=== PATIENT | male | born 1980 | race Caucasian/White ===

== ENCOUNTER 2021-01-10 15:08 | Outpatient (REF) | payer MEDICAID, SELFPAY ==
[2021-01-10 18:25] LABS: MANUAL DIFF FLAG NO
[2021-01-10 18:30] LABS: Basophils Absolute Auto 0.1 X10*3/uL (0.0-0.2); Basophils Percent Auto 1.1 % (0-2); Eosinophils Absolute Auto 0.9 X10*3/uL (0.0-0.4); Eosinophils Percent Auto 17.2 % (0-4); Hematocrit 41.8 % (42-52); Hemoglobin 14.3 g/dl (14.0-18.0); Imm Gran Abs Auto 0.01 X10*3/uL (0.00-0.03); Imm Gran Pct Auto 0.2 % (0.0-0.4); Lymphocytes Absolute Auto 1.9 X10*3/uL (1.2-4.9); Lymphocytes Percent Auto 34.7 % (20-40); Mean Corpuscular HGB Conc 34.2 g/dl (31.0-36.0); Mean Corpuscular Hemoglobin 31.7 pg (27.0-33.0); Mean Corpuscular Volume 92.7 fL (80-98); Mean Platelet Volume 10.7 fL (9.4-12.4); Monocytes Absolute Auto 0.4 X10*3/uL (0.1-1.2); Monocytes Percent Auto 7.1 % (2-11); Neutrophils Absolute Auto 2.2 X10*3/uL (2.0-8.3); Neutrophils Percent Auto 39.7 % (45-73); Platelet Count 258 X10*3/uL (160-400); Red Blood Count 4.51 X10*6/uL (4.60-5.80); Red Cell Distribution Width 12.3 % (11.0-16.0); White Blood Count 5.5 X10*3/uL (4.8-10.8)
[2021-01-10 18:57] LABS: Alanine Aminotransferase 18 U/L (0-40); Albumin Level 4.4 g/dL (3.5-5.0); Alkaline Phosphatase 56 U/L (39-117); Anion Gap 16 (12-20); Aspartate Amino Transferase 15 U/L (5-37); Bilirubin Total 0.8 mg/dL (0.0-1.0); Blood Urea Nitrogen 17 mg/dL (9-16); Calcium 9.8 mg/dL (8.4-10.2); Carbon Dioxide 24 mmol/L (22-29); Chloride 105 mmol/L (96-108); Cholesterol 191 mg/dL; Estimated Glomerular Filt Rate > 60; Glucose Fasting 89 mg/dL (60-99); HDL Cholesterol 35 mg/dL; LDL Cholesterol Calculated 80 mg/dl; Potassium 4.5 mmol/L (3.3-5.1); Sodium 140 mmol/L (135-145); Total Protein 6.9 g/dL (6.5-8.0); Triglycerides 381 mg/dL
== END 2021-01-10 15:09 | disposition home or self-care (01) ==
LOC: HO.MANLDS 15:08
PROVIDERS: PCP Internal Medicine; Visit Provider Physician Assistant
DX: I10 Essential (primary) hypertension (principal); E78.1 Pure hyperglyceridemia
CPT/HCPCS: 36415; 80053; 80061; 85025

== ENCOUNTER 2024-06-28 14:03 | Outpatient (REF) | payer MEDICAID, SELFPAY ==
[2024-06-28 15:06] LABS: MANUAL DIFF FLAG NO
[2024-06-28 15:12] LABS: Basophils Absolute Auto 0.1 X10*3/uL (0.0-0.2); Basophils Percent Auto 1.1 % (0-2); Eosinophils Absolute Auto 0.6 X10*3/uL (0.0-0.4); Eosinophils Percent Auto 13.2 % (0-4); Hematocrit 40.4 % (42.0-52.0); Hemoglobin 14.7 g/dl (14.0-18.0); Imm Gran Abs Auto 0.01 X10*3/uL (0.00-0.03); Imm Gran Pct Auto 0.2 % (0.0-0.4); Lymphocytes Absolute Auto 1.4 X10*3/uL (1.2-4.9); Lymphocytes Percent Auto 31.5 % (20-40); Mean Corpuscular HGB Conc 36.4 g/dl (31.0-36.0); Mean Corpuscular Hemoglobin 32.8 pg (27.0-33.0); Mean Corpuscular Volume 90.2 fL (80.0-98.0); Mean Platelet Volume 9.9 fL (9.4-12.4); Monocytes Absolute Auto 0.3 X10*3/uL (0.1-1.2); Monocytes Percent Auto 5.9 % (2-11); Neutrophils Absolute Auto 2.2 x10*3/uL (2.0-8.3); Neutrophils Percent Auto 48.1 % (45-73); Platelet Count 272 X10*3/uL (160-400); Red Blood Count 4.48 X10*6/uL (4.60-5.80); Red Cell Distribution Width 11.7 % (11.0-16.0); White Blood Count 4.5 X10*3/uL (4.8-10.8)
[2024-06-28 15:21] LABS: Alanine Aminotransferase 25 U/L (0-40); Albumin Level 4.4 g/dL (3.5-5.0); Alkaline Phosphatase 54 U/L (39-117); Anion Gap 12 (12-20); Aspartate Amino Transferase 38 U/L (5-37); Bilirubin Total 0.5 mg/dL (0.0-1.0); Blood Urea Nitrogen 16 mg/dL (9-16); Calcium 10.1 mg/dL (8.4-10.2); Carbon Dioxide 28 mmol/L (22-29); Chloride 106 mmol/L (96-108); Cholesterol 231 mg/dL (<200); Estimated Glomerular Filt Rate > 60; Glucose Random 87 mg/dL (60-115); HDL Cholesterol 39 mg/dL (>40); LDL Cholesterol Calculated 131 mg/dL (<100); Potassium 3.6 mmol/L (3.3-5.1); Sodium 142 mmol/L (135-145); Total Protein 7.1 g/dL (6.5-8.0); Triglycerides 305 mg/dL (<150)
[2024-06-28 15:45] LABS: Prostate Specific Antigen 0.38 ng/mL (<0.05-4.0)
== END 2024-06-28 14:04 | disposition home or self-care (01) ==
LOC: HO.HMGCLDS 14:03
PROVIDERS: PCP Internal Medicine; Visit Provider Physician Assistant
DX: E78.1 Pure hyperglyceridemia (principal); Z12.5 Encounter for screening for malignant neoplasm of prostate
CPT/HCPCS: 36415; 80053; 80061; 84153; 85025

== ENCOUNTER 2025-06-26 14:52 | Outpatient (REF) | payer OTHER, SELFPAY ==
--- OUTSIDE RECORDS SUMMARY | 2025-06-26 16:35 | XMS_ITS | Encounter Summary ---
Author Organization [facility] Address [address] [facility] [address] [place] [address] Phone Care Team Providers Care Jackerman Name Role Phone David Urbina DO Primary Care Provider [phone] David Urbina DO Unavailable Encounter Details Date Type Department Care Team (Late st Contact Info) Description 04/19/2022 Procedure Pass [address] [place] [address] Social History Tobacco Use Types Packs/Day Years Used Date Smoking Tobacco: Former Smokeless Tobacco: Never Comments:Quit 20 years ago. Alcohol Use Standard Drinks/Week Comments Yes 2 (1 standard drink = 0.6 oz pur e alcohol) Sex and Gender Information Value Date Recorded Sex Assigned at Not on file Legal Sex Male 9:24 PM EDT Gender Identity Not on file Sexual Orientation Not on file documented as of this encounter Last Filed Vital Signs Vital Sign Reading Time Taken Comments Blood Pressure - - Pulse - - Temperature - - Respiratory Rate - - Oxygen Saturation - - Inhaled Oxygen Concentration - - Weight 74.8 kg (165 lb) 04/20/2022 2:39 PM EDT Height 175.3 cm (5' 9 ) 04/20/2022 2:39 PM EDT Body Mass Index 24.37 04/20/2022 2:39 PM EDT documented in this encounter Plan of Treatment Not on file documented as of this encounter Visit Diagnoses Not on filedocumented in this encounter Additional Health Concerns Infection Onset Date Last Indicated Resolved Time MRSA 04/26/2022 04/26/2022 04/25/2024 1:21 AM EDT documented as of this encounter Care Teams Jackerman Relationship Specialty Start Date End Date David Urbina CelineDO [email or web address] PCP - General Internal Medicine 03/28/21 CarlitosDavidDO [address] [place] [address] [email or web address] Insurance Assigned Provider 05/14/21 01/20/23 documented as of this encounter Additional Source Comments The information contained in this document represents components of the legal health record. It is not the complete legal health record.[facility]
--- OUTSIDE RECORDS SUMMARY | 2025-06-26 16:36 | XMS_ITS | Continuity of Care Document ---
Author Organization [facility], [facility] Address [address] [facility] [place] [address] [place] [address] Assessment No assessment recorded. Plan of Treatment Reminders Order Date Submit Date Provider Last Modified By Organization Details Last Modified Time Details Appointments FOLLOW UP 15 2024 02:30P BEVERLY MATHEW Not available Not available Not available Lab CMP, serum or plasma 2024 025 [facility], [address] [place] [address], [id number], 06/26/2025 14:58:06 CBC w/ auto diff 2024 025 [facility], [address] [place] [address], [id number], 06/26/2025 14:58:06 hemoglobi n A1c, QN, blood 2024 025 [facility], [address] [place] [address], [id number], 06/26/2025 14:58:06 PSA, serum or plasma 2024 025 [facility], [address] [place] [address], [id number], 06/26/2025 14:58:29 Referral None recorded. Procedures None recorded. Surgeries None recorded. Imaging None recorded. Medication Orders gemfibroz il 600 mg tablet 2024 025 [facility] #[id number], [address] [place], [address], 06/26/2025 14:42:58 Patient TargetsNo targets recorded. Patient InstructionsNo instructions recorded. Reason for Referral None Reported. Problems Name Problem SNOMED Code Status Onset Date Resolution Date Notes Provider Name and Address Organization Details Recorded Time Essential hypertensi on 23002976 Active 2017 Not Available [facility] 0 11:47:08 Hypertrigl yceridemia 558919420 Active 2017 Not Available [facility] 0 11:47:08 Anxiety 84913807 Active 2017 Not Available [facility] 0 11:47:08 Acute sinusitis 54900579 Active 2023 BEVERLY PEREZ [address] [facility], [place], [address], [facility] 4 16:04:47 Problem Notes None recorded. Medical Equipment None Reported. Allergies No known drug allergies Medications Name Sig Start Date Stop Date Status Note LastModified by Organization Details LastModified Time azithromyci n 250 mg tablet TAKE 2 TABLETS (500 MG) BY ORAL ROUTE ONCE DAILY FOR 1 DAY THEN 1 TABLET (250 MG) BY ORAL ROUTE ONCE DAILY FOR 4 DAYS 06/26 completed Not Available Not Available Not Available lisinopril 20 mg tablet TAKE 1 TABLET BY MOUTH EVERY DAY active Not Available Not Available No t Available lorazepam 0.5 mg tablet TAKE 1 TABLET BY MOUTH TWICE DAILY NEEDED 06/26 completed Not Available Not Available Not Available aspirin 325 mg tablet,carmelo yed release 05/21 completed Not Available Not Available Not Available ciprofloxac in 0.3 % eye drops INSTILL 1 DROP FOUR TIMES DAILY IN LEFT EYE 04/04 completed Not Available Not Available Not Available gemfibrozil 600 mg tablet 1 tablet po bid 2024 active Not Available Not Available Not Avai lable lisinopril 10 mg tablet TAKE 1 TABLET BY MOUTH EVERY DAY 04/04 completed Not Available Not Available Not Available propranolol ER 80 mg capsule,24 hr,extended release TAKE 1 CAPSULE BY MOUTH EVERY DAY 05/21 completed Not Available Not Available Not Available fluoxetine 10 mg capsule 1 tab po daily, after 1 week 2 tabs daily 07/22 completed Not Available Not Available Not Available docusate sodium 100 mg capsule TAKE 1 CAPSULE BY MOUTH TWICE DAILY 05/21 completed Not Available Not Available Not Available propranolol ER 120 mg capsule,24 hr,extended release TAKE 1 CAPSULE BY MOUTH EVERY DAY 04/04 completed Not Available Not Available Not Available methylpredn isolone 4 mg tablets in a dose pack FOLLOW PACKAGE DIRECTION S 06/26 completed Not Available Not Available Not Available fluoxetine 20 mg capsule take 1 capsule by mouth once daily 10/13 completed Not Available Not Available Not Available oxycodone 5 mg tablet TAKE 1 TO 2 TABLETS BY MOUTH EVERY 4 HOURS NEEDED FOR MODERATE PAIN 05/21 completed Not Available Not Available Not Available duloxetine 30 mg capsule,del ayed release TK 1 C PO BID 11/15 completed Not Available Not Available Not Available Boostrix Tdap 2.5 Lf unit-8 mcg-5 Lf/0.5 mL intramuscul ar suspension ADM 0.5ML IM UTD 11/15 completed Not Available Not Available Not Available Afluria Qd 2019- (36 mos up)(PF)60 mcg (15 mcg x4)/0.5 mL IM syringe ADM 0.5ML IM UTD 11/15 completed Not Available Not Available Not Available Vitals Date Recorded Body height Body mass index (BMI) Body weight Heart rate Oxygen saturation Oxygen saturation in Arterial blood by Pulse oximetry Systolic And Diastolic Provider Name and Address Organization Details Last Updated DateTime 5 177.8 cm 24.2 kg/m2 76115.1 1 g 80 /min 98 % 98 % 140/80 mm[Hg] Jessica Sharpe [facility] 14:40:51 Social History Question Answer Notes LastModified by Organizat ion Details LastModified Time Tobacco Smoking Status Former Smoker 20 years ago [facility] 05/21/2023 14:16:35 What Was The Date Of Your Most Recent Tobacco Screening? 06/30/2024 [email or web address] Information not available 06/30/2024 Sex: Unknown Functional Status None recorded. Mental Status None recorded. Family History Relationship Description Onset Age of this Age Resolved Age Notes LastModified by Organization Details LastModified Time Mother Hypertensive disorder lucius Not available 2017 15:42:38 Mother Hypothyroidi sm [email or web address] Not available 2023 14:47:38 Maternal Grandfather Type 2 diabetes mellitus [email or web address] Not available 2017 15:42:54 Maternal Grandmother Harmful pattern of use of alcohol lucius Not available 2017 15:55:27 Medical History Condition Response Coronary Artery Disease N Gout N Other Kidney Stones N Blood Diseases N Hyperthyroidism N Breast Cancer N Blood Transfusion N COPD N Hypothyroidism N Lung Disease N Depression N Defects or Inherited Disease N Difficulty Swallowing N Anxiety Disorder Y Meniere's disease Y Vision or Eye Problems Y Arthritis N Mental Disorder N Stroke N Varicosities N Bladder or Kidney Problems N Liver Disease N Headaches N Kidney Disease N Allergies/Hayfever N Heart Problems N Thyroid Problems N GI Problems N Eating Disorder N Skin Problems Y Anemia N Constipation N Mental Illness Diabetes N Seizures/Epilepsy N Congestive Heart Failure (CHF) N Abuse/Domestic Violence N Diverticulitis N Asthma N Reflux/GERD Y Hepatitis N Heart Disease N Pulmonary Embolism N Chronic Ear Infections N Hypertension Y Chicken Pox Y Autism Spectrum Disorder (ASD) N Thrombophilias N Immunizations Vaccine Type Date Status Note Provider Nam e and Address Organization Details Recorded Time Influenza, split virus, quadrivalent, preservative 9 completed [facility] 12/27/2018 15:04:36 Influenza, split virus, quadrivalent, PF 9 arleen kapoor [facility] 12/27/2018 15:04:36 Influenza, split virus, quadrivalent, preservative 9 completed Kristy kapoor [facility] 07/11/2019 08:32:24 Tdap 0 arleen kapoor [facility] 05/18/2020 11:51:40 Influenza, split virus, quadrivalent, preservative 0 arleen kapoor [facility] 05/18/2020 11:51:48 COVID-19, mRNA, LNP-S, PF, 30 mcg/0.3 mL dose 1 completed Dori kapoor [facility] 02/14/2021 15:26:53 COVID-19, mRNA, LNP-S, PF, 30 mcg/0.3 mL dose 1 completed Dori kapoor [facility] 02/14/2021 15:27:01 Past Encounters Encounter ID Performer Location Encounter Start Date Encounter Closed Date Diagnosis/Indication Diagnosis SNOMED-CT Code Diagnosis ICD10 Code Diagnosis IMO Codes Diagnosis Note [id number] David Urbina [facility] [address] [facility],[place] [address] 06/26/2025 14:31:12 06/26/2025 14:51:25 Depression screening 025882082 Z13.31 SCREENING NEGATIVE Hypertriglyceridemia 302 085859 E78.1 stable Screening for malignant neoplasm of prostate 724488373 Z12.5 798227 stable Health Concerns Section Related Observation LastModified by Organization Detai ls LastModified Time None Recorded Concern Status LastModified by Organization Details LastModified Time None Recorded Payers Encounter Date Sequence Insurance Name Policy Number Policy Patino Covered Member ID Patino Member ID Guarantor Name 06/26/2025 1 [facility] (O) [id number] Kenneth Hutton [id number] Kenneth Hutton Notes Date Note Type Note Provider Name a nd Address Organization Details Recorded Time 06/26/2025 text/html ROS as noted in the HPI medications check the patient reports that he is doing good wellthe patient is doing well on his medicationsno changes, no allergies is due for his flu shotthe patient reports that he will get it soon, this month or next month the patient reportsthe patient reports that he is doing well overall BEVERLY PEREZ [address] [facility], [place], [address], [facility] 06/26/2025 14:50:05
--- OUTSIDE RECORDS SUMMARY | 2025-06-26 16:36 | XMS_ITS | Encounter Summary ---
Author Organization [facility] Address [address] [address] Phone Care Team Providers Care Material Control Supervisor Name Role Phone Nathaliekaity David Berger DO Primary Care Provider [phone] David Urbina DO Unavailable Encounter Details Date Type Department Care Team ([facility] st Contact Info) Description 04/28/2022 Procedure Pass OR Admitting Dept - Virtual Department [address] [place] [address] Social History Tobacco Use Types Packs/Day Years Used Date Smoking Tobacco: Former Cigarettes Q uit: 2001 Smokeless Tobacco: Never Comments:Quit 20 years ago. Alcohol Use Standard Drinks/Week Comments Yes 0 (1 standard drink = 0.6 oz pur e alcohol) 3x a week 15-20 beers Sex and Gender Information Value Date Recorded Sex Assigned at Not on file Legal Sex Male 9:24 PM EDT Gender Identity Not on file Sexual Orientation Not on file documented as of this encounter Plan of Treatment Not on file documented as of this encounter Visit Diagnoses Not on filedocumented in this encounter Additional Health Concerns Infection Onset Date Last Indicated Resolved Time MRSA 04/26/2022 04/26/2022 04/25/2024 1:21 AM EDT documented as of this encounter Care Teams Material Control Supervisor Relationship Specialty Start Date End Date David Urbina DO PCP - General Internal Medicine 03/28/21 David Urbina DO [address] [place] [id number] [email or web address] Insurance Assigned Provider 05/14/21 01/20/23 documented as of this encounter Additional Source Comments The information contained in this document represents components of the legal health record. It is not the complete legal health record.[facility]
--- OUTSIDE RECORDS SUMMARY | 2025-06-26 16:36 | XMS_ITS | Data Portability ---
Author Organization [facility], Telehealth Patient Home Address [address] [place] [address] Assessment Encounter Date Assessment Date Assessment LastModified by Organization Details LastModified Time 06/30/2024 06/30/2024 Patient presented for medication refill. Patient tolerating medication well at current dose without adverse effects. Refilled as below. Discussed plan with patient, who expressed understanding . Follow up as noted below. [email or web address] Not available 06/30/2024 14:50:19 Plan of Treatment Reminders Order Date Submit Date Provider Last Modified By Organization Details Last Modified Time Details Appointments FOLLOW UP 15 2024 02:30P BEVERLY MATHEW Not available Not available Not available Lab CMP, serum or plasma 2024 025 [facility], [address] [place] [address], [id number], 06/26/2025 14:58:06 CBC w/ auto diff 2024 025 [facility], [address] [place] [address], [id number], 06/26/2025 14:58:06 hemoglobi n A1c, QN, blood 2024 025 [facility], [address] [place] [address], [id number], 06/26/2025 14:58:06 PSA, serum or plasma 2024 025 [facility], [address] [place] [address], [id number], 06/26/2025 14:58:29 lipid panel, serum 2022 023 [facility], [address] [place] [address], [place], [address], 05/21/2023 16:20:42 CMP, serum or plasma 2022 023 [facility], [address] [place] [address], [place], [address], 05/21/2023 16:20:42 CBC w/ auto diff 2022 023 [facility], [address] [place] [address], [id number], 05/21/2023 16:20:42 PSA, serum or plasma 2022 023 [facility], [address] [place] [address], [place], [address], 05/21/2023 16:20:42 Referral None recorded. Procedures None recorded. Surgeries None recorded. Imaging None recorded. Medication Orders gemfibroz il 600 mg tablet 2024 025 [id number], [address] [place], [address], 06/26/2025 14:42:58 lisinopri l 20 mg tablet 2023 024 SARAH Not available 06/30/2024 14:50:34 lisinopri l 20 mg tablet 2020 021 SARAH Not available 04/04/2021 16:15:07 lisinopri l 10 mg tablet 2020 021 [email or web address] Not available 04/04/2021 16:14:36 propranol ol ER 80 mg capsule,2 4 hr,extend ed release 2020 021 [email or web address] Not available 05/21/2023 14:16:15 Patient TargetsNo targets recorded. Patient InstructionsNo instructions recorded. Reason for Referral None Reported. Results Created Date Observation Date Name Description Value Unit Range Abnormal Flag Note LastModifiedBy Organization Detail LastModifiedTime Result Notes None recorded. Problems Name Problem SNOMED Code Status Onset Date Resolution Date Notes Provider Name and Address Organization Details Recorded Time Essential hypertensi on 24194654 Active 2017 Not Available [facility] 0 11:47:08 Hypertrigl yceridemia 000018954 Active 2017 Not Available [facility] 0 11:47:08 Anxiety 42400575 Active 2017 Not Available [facility] 0 11:47:08 Acute sinusitis 20793671 Active 2023 BEVERLY PEREZ [address] [place] [address], [phone], [facility] 4 16:04:47 Problem Notes [...] height Body mass index (BMI) Body weight Oxygen saturation Oxygen saturation in Arterial blood by Pulse oximetry Heart rate Systolic And Diastolic Provider Name and Address Organization Details Last Updated DateTime 1 177.8 cm 25 kg/m2 36225.0 7 g 98 % 98 % 73 /min 162/94 mm[Hg] Dori Boone [facility] [facility] 1 16:05:52 Date Recorded Body height Body mass index (BMI) Body weight Heart rate Oxygen saturation Oxygen saturation in Arterial blood by Pulse oximetry Systolic And Diastolic Provider Name and Address Organization Details Last Updated DateTime 1 177.8 cm 24.8 kg/m2 20997.7 6 g 71 /min 97 % 97 % 130/84 mm[Hg] BEVERLY PEREZ [address] [place], [address] [place] [address] Internal Medicine 1 15:59:37 Date Recorded Body weight Heart rate Oxygen saturation Oxygen saturation in Arterial blood by Pulse oximetry Systolic And Diastolic Provider Name and Address Organization Details Last Updated DateTime 3 68345.3 3 g 89 /min 99 % 99 % 150/85 mm[Hg] Faby Zeng [facility] 3 14:18:36 Date Recorded Body height Body mass index (BMI) Body weight Heart rate Oxygen saturation Oxygen saturation in Arterial blood by Pulse oximetry Systolic And Diastolic Provider Name and Address Organization Details Last Updated DateTime 5 177.8 cm 24.2 kg/m2 35018.1 1 g 80 /min 98 % 98 % 140/80 mm[Hg] Jessica Riveramond [facility] 5 14:40:51 Date Recorded Body height Body mass index (BMI) Body weight Heart rate Oxygen saturation Oxygen saturation in Arterial blood by Pulse oximetry Systolic And Diastolic Provider Name and Address Organization Details Last Updated DateTime 4 177.8 cm 24.2 kg/m2 94746.1 1 g 86 /min 100 % 100 % 118/82 mm[Hg] Monica Hernandez [facility] 4 14:39:47 Social History Question Answer Notes LastModified by Organizat ion Details LastModified Time Tobacco Smoking Status Former Smoker 20 years ago Faby Zeng [facility] 05/21/2023 14:16:35 What Was The [...] 14:47:38 Maternal Grandfather Type 2 diabetes mellitus lucius Not available 2017 15:42:54 Maternal Grandmother Harmful [...] split virus, quadrivalent, preservative 9 completed Miracle kapoor [facility] 12/27/2018 15:04:36 Influenza, split virus, quadrivalent, PF 9 completed Miracle kapoor [facility] 12/27/2018 15:04:36 Influenza, split virus, quadrivalent, preservative 9 arleen kapoor [facility] 07/11/2019 08:32:24 Tdap 0 arleen kapoor [facility] 05/18/2020 11:51:40 Influenza, split virus, quadrivalent, preservative 0 arleen kapoor [facility] 05/18/2020 11:51:48 COVID-19, mRNA, LNP-S, PF, 30 mcg/0.3 mL dose 1 completed Dori kapoor [facility] 02/14/2021 15:26:53 COVID-19, mRNA, LNP-S, PF, 30 mcg/0.3 mL dose 1 completed Dori kapoor [facility] 02/14/2021 15:27:01 Past Encounters Encounter ID Performer Location Encounter Start Date Encounter Closed Date Diagnosis/Indication Diagnosis SNOMED-CT Code Diagnosis ICD10 Code Diagnosis IMO Codes Diagnosis Note [id number] David BergerRosalee Urbina [facility] [address] [facility] [address] 05/13/2018 14:54:39 05/14/2018 08:08:20 Adult health examination 176621733 Z00.00 Anxiety 99831688 F41.9 avoid use with ETOH Hypertriglyceridemia 302 795699 E78.2 Essential hypertension 01663394 I10 well controlled Screening procedure 2012 5006 Z13.9 Alcoholic binges exceeding sensible amounts 019963820 F10.10 long discussion [id number] David Morgan Carlitos [facility] [address] [facility] [address] 06/17/2018 15:29:01 06/18/2018 10:41:48 Anxiety 67599645 F41.9 avoid use with ETOH Hypertriglyceridemia 302 766381 E78.2 triglyceri eve improved from 555 to 338, follow Essential hypertension 50406671 I10 well controlled [id number] David Cathy Urbina [facility] [address] [facility] [address] 12/27/2018 15:00:36 12/27/2018 15:40:40 Anxiety 64585287 F41.9 avoid use with ETOH Hypertriglyceridemia 302 975209 E78.2 Essential hypertension 81448797 I10 [id number] David Morgan Carlitos [facility] [address] [facility],[place] [address] 10/13/2019 16:04:00 10/14/2019 08:13:36 Hypertriglyceridemia 123311073 E78.1 Anxiety 04724394 F41.9 he has emetophobi a Essential hypertension 01448467 I10 [id number] David Morgan Carlitos [facility] [address] [facility] [place] [address] 04/19/2020 16:01:41 04/19/2020 16:55:34 Essential hypertension 55691184 I10 bp is good and is stable Anxiety 97684261 F41.9 he has emetophobi a note he is down to 1-2 lorazepam per WEEK relates doing the duloxetine is seemingly helpful and we will increase the dose to 60mg Hypertriglyceridemia 302 375571 E78.1 not always compliant with the gemfibrozi l told him to do best he can [id number] David Urbina [facility] [address] [facility] [place] [address] 11/15/2020 15:58:19 11/15/2020 16:46:22 Essential hypertension 08408111 I10 BP elevated today discussed benefits of switching medication to one that may work better for his BP patient will consider it will fu in three months will BP recheck and BW fu Anxiety 28173542 F41.9 reports he is stable without medication Hypertriglyceridemia 302 753612 E78.1 needs repeat of his BW [id number] David Urbina [facility] [address] [facility] [place] [address] 02/21/2021 15:59:01 02/21/2021 16:21:09 Essential hypertension 50852403 I10 BP is elevated stillwill taper off the propanolol and give appts Anxiety 45375905 F41.9 reports he is stable without medication [id number] David Urbina [facility] [address] [facility] [place] [address] 04/04/2021 15:55:43 04/04/2021 16:34:54 Essential hypertension 14308255 I10 BP much improved at this timewill increase dose again due to patient and my concern his BP may be elevated at home Conjunctivitis 1152209 H 10.9 resolved [id number] David Urbina [facility] [address] [facility] [place] [address] 05/21/2023 14:11:24 05/21/2023 14:41:20 Anxiety 81236282 F41.1 stableuses it when he needs it, very sparring Essential hypertension 86638106 I10 stable per patient Hypertriglyceridemia 302 611362 E78.1 stable Screening for malignant neoplasm of prostate 680604814 Z12.5 stable [id number] David Urbina [facility] [address] [facility] [place] [address] 06/30/2024 14:27:14 06/30/2024 15:21:27 Renewal of prescription 244993438 Z76.0 stable Depression screening 171 017009 Z13.31 SCREENING NEGATIVE Essential hypertension 68875825 I10 stable per patient [id number] David Urbina DO [facility] [address] [facility],[place] [address] 06/26/2025 14:31:12 06/26/2025 14:51:25 Depression screening 337224837 Z13.31 SCREENING NEGATIVE Hypertriglyceridemia 302 926065 E78.1 stable Screening for malignant neoplasm of prostate 491998165 Z12.5 184981 stable Health Concerns Section Related Observation LastModified by Organization Detai ls LastModified Time None Recorded Concern Status LastModified by Organization Details LastModified Time None Recorded Advance Directives Directive None Recorded Payers Insurance Date Sequence Insurance Name Policy Number Policy Patino Covered Member ID Patino Member ID Guarantor Name 06/26/2025 1 [place] [facility] Kenneth Hutton [id number] Kenneth Hutton 06/30/2024 1 [place] [facility] PRIOR TO 12/02/2022 - [facility] (MEDICAID) Kenneth Hutton [id number] Kenneth Hutton 06/26/2025 1 [facility] (O) [id number] Kenneth Hutton [id number] Kenneth Hutton Notes Date Note Type Note Provider Name a ny Address Organization Details Recorded Time 1 text/html ROS as noted in the HPI c/o BP and cholesterol fu the patient reports that he is drinking, drinks a couple times a week the patient reports that it changes every day the patient and I discussed his diet the patient reports that he is aware of the risks but will continue to what he wants to do this includes taking his medication incorrectly only takes his gemfibrozil once per day, won't change that discussed risks with untreated cholesterol and BP but patient reports that he is aware for the possible consequences and will not change his life style his cholesterol wasn't terrible, just his triglycerides are elevated BEVERLY PEREZ [address] [facility], [place], [address], [facility] 02/21/2021 16:20:08 1 text/html ROS as noted in the HPI 1 mo fu HTN: today in the office the patient BP is 130/84the patient is doing well on the BP medication with no side effects and no adjustment of their medications needed today at the appointmentclintontiki moeller on medicationdenies chest pain, sob, ankle swelling, orthopnea, palpitations the patient reports that he last week he called due to possible exposure to GC/C due to seeing a woman who was sleeping with other men, possible STI exposurewas directed to UC due to no SDV aptswas seen in UC, started on treatment for both G/C and possible infection into the eyes as wellhis testing came back negative though, but was told to continue the abxwas given abx and eye drops which helped resolve the issue discussed safe sex practices with that patienttold him to have his partner get tested as welldiscussed with me that she said she did get tested but she was negative as well discussed with patient to use a condom next time his has relations with any woman does report he has a fu with optho to recheck his eyesstates his vision is different, blurredeyes are still inflamed today in officediscussed other treatment, like a steriod drop, pt refuseddid tell the patient he should at least keep his fu to have his eyes recheckedpatient agreed BEVERLY PEREZ [address] [place], [address], [facility] 04/04/2021 16:24:10 3 text/html ROS as noted in the HPI medication check HTN: the patient did have a cough in the beginning which since resolvedthe patient reports that he is doing okay no more cough BP is still elevated but does not take it at home had left arm (elbow surgery)no issues, healed well without complicationsno allergies to any of the meds they gave him healed well per patient needs routine lab work BEVERLY PEREZ [address] [place], [address], [facility] 05/21/2023 14:28:15 4 text/html medication check the patient reports that he is taking his medicationthe patient BW was good, did eat before going so that would explain a jump in his cholesterol kidneys and liver look goodlevels are appropriate walks a lot, around 10 miles per day which is great the patient is doing welltaking medications as prescribedthe patient is doing BP is excellent BEVERLY PEREZ [address] [place], [address], [facility] 06/30/2024 14:51:03 text/html ROS as noted in the HPI medications check the patient reports that he is doing good wellthe patient is doing well on his medicationsno changes, no allergies is due for his flu shotthe patient reports that he will get it soon, this month or next month the patient reportsthe patient reports that he is doing well overall BEVERLY PEREZ [address] [place], [address], [facility] 06/26/2025 14:50:05
--- OUTSIDE RECORDS SUMMARY | 2025-06-26 16:36 | XMS_ITS | Clinical Summary ---
Author Organization [facility] Address [address] [facility] [address] [place] [address] Phone Care Team Providers Care Oil Tester Name Role Phone David Urbina DO Primary Care Provider [phone] Allergies No known active allergies Medications gemfibroziL (LOPID) 600 MG tablet Take 600 mg by mouth daily. Active lisinopril (PRINIVIL,ZESTR IL) 20 MG tablet Take 20 mg by mouth daily. 2 Active aspirin 325 MG EC tablet Take 1 tablet (325 mg total) by mouth daily for 14 days. 13 tablet 2 Active Additional Information Patient not taking.Reported on 06/05/2022 Active Problems Problem Noted Date Diagnosed Date Anxiety 05/13/2018 Essential hypertension 05/13/2018 Hypertriglyceridemia 05/13/2018 Immunizations Immunization Administration Dates Next Due COVID-19 (Pre-06/25) Pfizer Vaccine, mRNA, PF ,01/19/2021 INFLUENZA, SPLIT VIRUS, TRIVALENT PF 06/21/2015 Influenza Quadrivalent Preservative Free IM 05/04,09/30/2018 Influenza Quadrivalent w/ Preservative IM 2018 Tdap 05/17/2020 Social History Tobacco Use Types Packs/Day Years Used Date Smoking Tobacco: Former Cigarettes Q uit: 2001 Smokeless Tobacco: Never Comments:Quit 20 years ago. Alcohol Use Standard Drinks/Week Comments Yes 0 (1 standard drink = 0.6 oz pur e alcohol) 3x a week 15-20 beers Education Answer Date Recorded Are you interested in more education? Not on allison e 12/29/2022 Are you concerned about learning? Not on file 12/29/2022 No 12/29/2022 No 12/29/2022 Digital Access Answer Date Recorded No 01/29/2023 No 01/29/2023 No 01/29/2023 Reliable internet access at home? Not on file 01/29/2023 Device with a working camera? Not on file Sex and Gender Information Value Date Recorded Sex Assigned at Not on file Legal Sex Male 9:24 PM EDT Gender Identity Not on file Sexual Orientation Not on file Last Filed Vital Signs Vital Sign Reading Time Taken Comments Blood Pressure 134/78 04/28/2022 2:00 PM EDT Pulse 95 04/28/2022 2:00 PM EDT Temperature 36.6 C (97.9 F) 04/28/2022 1:25 PM EDT Respiratory Rate 22 04/28/2022 2:00 PM EDT Oxygen Saturation 96% 04/28/2022 2:00 PM EDT Inhaled Oxygen Concentration - - Weight 74.8 kg (165 lb) 04/27/2022 12:49 PM EDT Height 175.3 cm (5' 9 ) 04/27/2022 12:49 PM EDT Body Mass Index 24.37 04/27/2022 12:49 PM EDT Plan of Treatment Health Maintenance Due Date Last Done Comments BLOOD PRESSURE 1978 CREATININE LEVEL 1978 POTASSIUM LEVEL 1978 DEPRESSION SCREENING 1990 SMOKING Hx and SMOKELESS TOBACCO SCREENING 11/14/1991 HEPATITIS C SCREENING 1996 HIV ONE-TIME SCREENING (18-65 YEARS) 1996 COLOGUARD 11/14/2023 COLONOSCOPY 11/14/2023 COLORECTAL CANCER SCREENING 11/14/2023 FIT TEST 11/14/2023 FOBT 11/14/2023 SIGMOIDOSCOPY 11/14/2023 VIRTUAL COLONOSCOPY 11/14/2023 INFLUENZA VACCINE (#1) 2025 , 05/17/2020, 07/07/2019, Additional history exists COVID-19 VACCINE ( season) 2025 10/26/2021, 02/09/2021, 01/19/2021 LIPID PANEL 01/10/2026 01/10/2021 Adult Td,Tdap Booster 05/17/2030 05/17/2020 HEPATITIS A VACCINES Aged Out No long er eligible based on patient's age to complete this topic HIB VACCINES Aged Out No longer eligi ble based on patient's age to complete this topic MENINGOCOCCAL VACCINES (ACWY) Aged Out No longer eligible based on patient's age to complete this topic MENINGOCOCCAL VACCINES (B) Aged Out N o longer eligible based on patient's age to complete this topic PNEUMOCOCCAL VACCINES (0-49 years) Aged Out No longer eligible based on patient's age to complete this topic Medical Devices Implanted Type Area Gauger Delivery Device Identifier Shelf Expiration Date Model / Serial / Lot Repair Bicep Number 2 System Delivery Implant Distal Straight Needle - [id number] Implanted:Qty: 1 on 04/28/2022 by Edmundo Prescott DO at [facility] Left: Elbow ARTHREX 03/02/2027 [id number] / / [id number] Device Fixation Ultrabutton Adjustable - [id number] Implanted:Qty: 1 on 04/28/2022 by Edmundo Prescott DO at [facility] Left: Elbow VALENTINO 02/23/2025 [id number] / / [id number] Care Teams Oil Tester Relationship Specialty Start Date End Date David Urbina DO [email or web address] PCP - General Internal Medicine 03/28/21 Additional Source Comments The information contained in this document represents components of the legal health record. It is not the complete legal health record.[facility]
[2025-06-26 18:29] LABS: MANUAL DIFF FLAG NO
[2025-06-26 18:30] LABS: Hematocrit 43.4 % (42.0-52.0); Hemoglobin 15.1 g/dl (14.0-18.0); Imm Gran Abs Auto 0.02 X10*3/uL (0.00-0.03); Imm Gran Pct Auto 0.4 % (0.0-0.4); Lymphocytes Absolute Auto 1.7 X10*3/uL (1.2-4.9); Mean Corpuscular HGB Conc 34.8 g/dl (31.0-36.0); Mean Corpuscular Hemoglobin 31.8 pg (27.0-33.0); Mean Corpuscular Volume 91.4 fL (80.0-98.0); NRBC Abs Auto 0.000 X10*3/uL (0.0-0.012); NRBC Pct Auto 0.0 /100WBC (0.0-0.2); Platelet Count 262 X10*3/uL (160-400); Red Blood Count 4.75 X10*6/uL (4.60-5.80); White Blood Count 5.5 X10*3/uL (4.8-10.8)
[2025-06-26 18:47] LABS: Alanine Aminotransferase 25 U/L (0-40); Albumin Level 4.7 g/dL (3.5-5.0); Alkaline Phosphatase 52 U/L (39-117); Anion Gap 11 (12-20); Aspartate Amino Transferase 19 U/L (5-37); Blood Urea Nitrogen 15 mg/dL (9-16); Calcium 9.2 mg/dL (8.4-10.2); Carbon Dioxide 27 mmol/L (22-29); Chloride 107 mmol/L (96-108); Estimated Glomerular Filt Rate > 60; Potassium 4.1 mmol/L (3.3-5.1); Sodium 141 mmol/L (135-145); Total Protein 7.0 g/dL (6.5-8.0)
[2025-06-26 19:05] LABS: Prostate Specific Antigen 0.46 ng/mL (<0.05-4.0)
[2025-06-27 03:43] LABS: Hemoglobin A1C 125.0476 umol/L; Total Hemoglobin (HGBA1C) 3849.8821 umol/L
== END 2025-06-26 14:53 | disposition home or self-care (01) ==
LOC: HO.MANLDS 14:52
PROVIDERS: Visit Provider Physician Assistant
DX: Z12.5 Encounter for screening for malignant neoplasm of prostate (principal); E78.1 Pure hyperglyceridemia
CPT/HCPCS: 36415; 80053; 83036; 84153; 85025